=== PATIENT | male | born 1945 | race Caucasian/White ===

== ENCOUNTER 2017-07-07 03:59 | Emergency (ER) | payer MEDICARE, SELFPAY ==
[2017-07-07 04:00] VITALS: BP 104/73; PULSE 77; RESP 16; TEMP 36.5; O2SAT 97; BMI 26.5
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
--- NOTE | 2017-07-07 04:16 | CT_ITS ---
STUDY: CT BRAIN WITHOUT CONTRAST REASON FOR EXAM: Male, 71 years old. Increased confusion. RADIATION DOSAGE (If Supplied By Facility): CTDIvol = ( 44.99 ) mGy, DLP = ( 796.11 ) mGycm TECHNIQUE: Transaxial CT imaging of the brain was performed without administration of intravenous contrast material. Individualized dose optimization techniques were used for this CT. COMPARISON: None. FINDINGS: Normal soft tissue structures. Normal calvarium. Normal size ventricles and extra-axial spaces for the patient's age. There are areas of decreased attenuation within the white matter tracts of the supratentorial brain, consistent with microvascular disease changes. 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 Normal basal ganglia and thalami. Normal brainstem. Normal cerebellum. There is no intracranial hemorrhage. There are no findings of an acute ischemic infarction. Normal visualized paranasal sinuses. CT/Brain/Head without Contrast IMPRESSION: Chronic involutional changes of the brain. 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 Electronically Signed: Onur Lopez MD at 4:48 EST Tel , Service support ,
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
[2017-07-07 04:32] LABS: Absolute Lymphocyte Count 1.63 X10^3/ul (0.83-4.51); Absolute Neutrophil Count 2.7 X10^3/uL (2.0-7.7); Basophil# 0.03 X10^3/uL; Basophil% 0.6 % (0-1); Eosinophil# 0.11 X10^3/uL; Eosinophils% 2.2 % (0-5); Hematocrit 41.8 % (40-54); Hemoglobin 14.1 g/dl (13.0-16.5); Lymphocyte # 1.63 X10^3/ul (4.0); Lymphocyte % 33.3 % (19-41); Mean Corp Hgb Conc 33.7 g/gl (32-36); Mean Corpuscular Hgb 32.3 pg (27.0-32.0); Mean Corpuscular Volume 95.9 fL (80-94); Mean Platelet Vol. 9.1 fl (6.2-12.0); Monocyte# 0.43 X10^3/uL; Monocyte% 8.8 % (0-10); Neutrophil # 2.69 X10^3/uL (2.7-7.7); Neutrophil % 54.9 % (47-70); Platelet Count 188 K/mm3 (150-450); RBC Distribution Width CV 13.8 % (11.6-14.6); RBC Distribution Width SD 46.8 fl (35.1-43.9); Red Blood Count 4.36 M/mm3 (4.6-6.2); White Blood Count 4.9 K/mm3 (4.4-11.0)
[2017-07-07 04:35] LABS: POSITIVE COUNT NO; POSITIVE DIFFERENTIAL NO; POSITIVE MORPHOLOGY NO
[2017-07-07 04:50] LABS: Anion Gap 9 (5-15); BUN 25 mg/dL (7-18); BUN/Creat Ratio 27.8 RATIO (10-20); Calcium,Total 8.2 mg/dL (8.5-10.1); Chloride 107 mmol/L (98-107); EST Glomerular Filtration Rate 89 mL/min (>60); Est Glom Filt Rate - Afr Amer 107 mL/min (>60); Estimated Creatinine Clearance 68.92 ml/min; Glucose 106 mg/dL (74-106); Potassium 3.7 mmol/L (3.5-5.1); Sodium Level 142 mmol/L (136-145)
[2017-07-07 04:54] LABS: Bacteria 0 SEEN /hpf (None Seen); Mucous, Urine 0 SEEN /hpf (<or=2+); Red Blood Cells-Urine 0 SEEN /hpf (0-5); Squamous Epithelial Cells - UA 0 SEEN /hpf (0-5); White Blood Cells 0 SEEN /hpf (0-5)
[2017-07-07 04:56] LABS: Color, Urine Yellow (Yellow); Glucose, Dipstick Normal (Normal); Ketone-Dipstick Negative (Negative); Leukocyte Esterase-Dipstick Negative /ul (Negative); Nitrite-Dipstick Negative (Negative); Occult Blood-Urine Negative /ul (Negative); Protein-Dipstick Negative (Negative); Urine Bilirubin Dipstick Negative (Negative); Urine Clarity Clear (Clear); Urine Urobilinogen Normal (Normal)
--- NOTE | 2017-07-07 05:39 | ED.RN ---
called SUN of [facility] and spoke with her at this time. SUN at this time does not feel as if the patient is safe to return. Dr. Garcia concert pianist [facility]. Spoke with him at this time and made him aware. Dr. Garcia fine with patient returning with PRN medications. SUN will call back with information. [phone]
[2017-07-07 05:56] VITALS: RESP 16
--- NOTE | 2017-07-07 05:56 | ED.RN ---
[facility] called and report given to them at this time.
--- NOTE | 2017-07-07 05:57 | ED.RN ---
PT TAKEN HOME TO [facility] BY SON AND DAUGHTER
== END 2017-07-07 05:57 | disposition home or self-care (01) ==
PROVIDERS: Emergency Provider Emergency Medicine; Family Provider Family Medicine; PCP Family Medicine
DX: F03.91 Unspecified dementia, unspecified severity, with behavioral disturbance (principal)
CPT/HCPCS: 36415; 70450; 71046; 80048; 81001; 85025; 99284